=== PATIENT | male | born 1970 | race African-American/Black ===

== ENCOUNTER 2016-10-17 15:58 | Emergency (ER) | payer SELFPAY ==
[~2016-10-17] VITALS: Ht 175.3 cm; Wt 81.8 kg
[2016-10-17] MEDS ORDERED: LIDOCAINE HCL 1% 10 ML VIAL INJ ONE (17:00)
[2016-10-17] MEDS ORDERED: POVIDONE-IODINE 10% 15 ML SOLUTION UD TP ONE (17:00)
[2016-10-17] MEDS ORDERED: IBUPROFEN 800 MG TABLET PO ONE (17:45)
[2016-10-17] MEDS ORDERED: PERTUSS(ACELL),DIPH,TET VAC/PF 0.5 ML VIAL IM ONE (17:45)
[2016-10-17 17:54] VITALS: BP 128/72
== END 2016-10-17 17:56 | disposition home or self-care (01) ==
LOC: EMS 16:00
DX: S01.511A Laceration without foreign body of lip, initial encounter (principal); F17.210 Nicotine dependence, cigarettes, uncomplicated; W01.0XXA Fall on same level from slipping, tripping and stumbling without subsequent striking against object, initial encounter; Y93.89 Activity, other specified; Y92.89 Other specified places as the place of occurrence of the external cause; Y99.8 Other external cause status
CPT/HCPCS: 12013; 90471; 90715; 99283; J3490

== ENCOUNTER 2016-10-24 10:50 | Emergency (ER) | payer SELFPAY ==
[~2016-10-24] VITALS: Ht 175.3 cm; Wt 81.8 kg
[2016-10-24] MEDS ORDERED: CefTRIAXone SODIUM 1 GM/VIAL IM ONE (11:15)
[2016-10-24] MEDS ORDERED: LIDOCAINE HCL/PF 1% 2 ML VIAL IM ONE (11:15)
[2016-10-24 12:05] VITALS: BP 139/89
== END 2016-10-24 12:05 | disposition home or self-care (01) ==
LOC: EMS 10:52
DX: Z48.02 Encounter for removal of sutures (principal); K13.0 Diseases of lips; L08.9 Local infection of the skin and subcutaneous tissue, unspecified; F17.210 Nicotine dependence, cigarettes, uncomplicated
CPT/HCPCS: 96372; 99283; J0696; J3490